=== PATIENT | female | born 1975 | race Caucasian/White ===

== ENCOUNTER 2017-02-19 12:05 | Emergency (ER) | payer MEDICAID, OTHER ==
[~2017-02-19] VITALS: Ht 149.9 cm; Wt 57.2 kg
[~2017-02-19 12:05] MED LIST: ACET-8386 PO
[2017-02-19 12:50] VITALS: BP 144/82
--- NOTE | 2017-02-19 13:00 | NUR ---
PT AMBULATES BACK TO THE LOBBY
--- NOTE | 2017-02-19 14:40 | NUR ---
C/O UNABLE TO SEE ON RT EYE SHUT X 2 DAYS WITH LITTLE DIZZINESS, UNABLE TO BEND HX; DENIES . DENIES N/V/D; SKIN IS PINK/WARM/DRY; AAOX4 WITH EVEN AND STEADY GAIT; LUNGS CLEAR BL; HR EVEN AND REGULAR; PT DENIES ANY FEVER, CP, SOB, OR COUGH AT THIS TIME; PATIENT STATES PAIN OF 5/10 AT THIS TIME; VSS; PATIENT POSITIONED FOR COMFORT; HOB ELEVATED; BEDRAILS UP X2; BED DOWN. ER MD MADE AWARE OF PT STATUS.
[2017-02-19 14:43] VITALS: BP 138/70
[2017-02-19] MEDS ORDERED: TETRACAINE HCL/PF 0.5% OPTH 4 ML BTL ONE (14:48)
[2017-02-19] MEDS: TETRACAINE HCL/PF 0.5% OPTH 4 ML BTL OP ONE (15:11)
--- NOTE | 2017-02-19 15:12 | NUR ---
pt seen and discharged by
== END 2017-02-19 15:12 | disposition home or self-care (01) ==
LOC: MED 12:05
DX: H10.31 Unspecified acute conjunctivitis, right eye (principal); Z79.899 Other long term (current) drug therapy
CPT/HCPCS: 99283

== ENCOUNTER 2020-10-24 17:20 | Emergency (ER) | payer OTHER ==
[~2020-10-24] VITALS: Ht 149.9 cm; Wt 68.0 kg
[2020-10-24 18:45] VITALS: BP 147/90
--- NOTE | 2020-10-24 18:45 | NUR ---
to tent ambulatory
--- NOTE | 2020-10-24 19:20 | NUR ---
SEEN AND EXAMINED BY PA
[2020-10-24] MEDS ORDERED: NAPR-54 PO (19:25)
[2020-10-24] MEDS ORDERED: ONDA-24 SL (19:25)
[2020-10-24] MEDS ORDERED: PROM118S5 PO (19:25)
--- NOTE | 2020-10-24 19:40 | NUR ---
SWAB FOR NOVEL SENT TO LAB
[2020-10-24 19:50] VITALS: BP 147/90
--- NOTE | 2020-10-24 19:50 | NUR ---
Patient discharged with v/s stable. Written and verbal after care instructions given and explained. Patient alert, oriented and verbalized understanding of instructions. Ambulatory with steady gait. All questions addressed prior to discharge. ID band removed. Patient advised to follow up with PMD. Rx of NAPROXEN, ZOFRAN PROMETHAZINE given. Patient educated on indication of medication including possible reaction and side effects. Opportunity to ask questions provided and answered.
== END 2020-10-24 19:50 | disposition home or self-care (01) ==
LOC: MED 17:20
DX: U07.1 COVID-19 (principal)
CPT/HCPCS: 99283; U0003

== ENCOUNTER 2020-11-05 17:09 | Emergency (ER) | payer OTHER ==
[~2020-11-05] VITALS: Ht 149.9 cm; Wt 64.4 kg
[~2020-11-05 17:09] MED LIST changes: +NAPR-54 PO; +ONDA-24 SL; +PROM118S5 PO
[2020-11-05 17:13] VITALS: BP 157/113
--- NOTE | 2020-11-05 17:17 | NUR ---
BIB SELF C/O COUGH, 7/10 CAUSEY X 3 WEEKS. COVID TESTED POSITIVE 10/24/20. PMH: DENIES
[2020-11-05] MEDS ORDERED: SUMA100T21 PO (18:52)
[2020-11-05 19:00] VITALS: BP 157/113
--- NOTE | 2020-11-05 19:00 | NUR ---
Patient discharged with v/s stable. Written and verbal after care instructions given and explained. Patient verbalized understanding. Ambulatory with steady gait. All questions addressed prior to discharge. Advised to follow up with PMD.
--- NOTE | 2020-11-05 19:00 | NUR ---
COVID PCR SWAB DONE.
== END 2020-11-05 19:00 | disposition home or self-care (01) ==
LOC: MED 17:09
DX: G43.909 Migraine, unspecified, not intractable, without status migrainosus (principal); Z20.822 Contact with and (suspected) exposure to COVID-19
CPT/HCPCS: 99283; U0003

== ENCOUNTER 2020-11-20 12:50 | Emergency (ER) | payer OTHER ==
[~2020-11-20] VITALS: Ht 149.9 cm; Wt 64.4 kg
[~2020-11-20 12:50] MED LIST changes: +SUMA100T21 PO
[2020-11-20 12:56] VITALS: BP 111/41
--- NOTE | 2020-11-20 13:00 | NUR ---
PATIENT AMBULATED TO BED 8, STEADY GAIT.
--- NOTE | 2020-11-20 13:03 | NUR ---
44 YO FEMALE BIBS WITH C/O L FACE SWELLING WITH 10/10 PAIN X 5 DAYS. DESCRIBES PAIN PRESSURE/CONSTANT. PER PATIENT, PAIN BEGAN IN GUMS. PATIENT STATES SHE TOOK 4 OTC ADVIL TABLETS TODAY AND HAS APPLIED ICE TO FACE, W/O RELIEF. DENIES NUMBNESS/TINGLING OR LOSS OF SENSATION TO FACE. DENIES PROBLEMS WITH VISION/HEARING. DENIES RECENT RESPIRATORY PROBLEMS. DENIES FEVER, CHILLS, N/V/D. A&OX4, VSS. PMH: DENIES NKDA
--- NOTE | 2020-11-20 13:12 | NUR ---
MD LINDA AT BEDSIDE EVALUATING PATIENT.
[2020-11-20] MEDS ORDERED: AMPICILLIN/SULBACTAM 3 GM in NACL 0.9% 100 ML IV ONE (13:15)
[2020-11-20] MEDS ORDERED: NACL 0.9% 1,000 ML IV ONE (13:15)
--- NOTE | 2020-11-20 13:30 | NUR ---
BLOOD SAMPLES COLLECTED AND WALKED TO LAB.
[2020-11-20] MEDS ORDERED: AMPICILLIN/SULBACTAM 3 GM VIAL ONE (13:39)
[2020-11-20 14:10] LABS: BASOPHILS % (AUTO) 0.3 % (0.0-2.0); EOSINOPHILS # (AUTO) 0.1 K/uL (0-0.4); EOSINOPHILS % (AUTO) 0.5 % (0.0-4.0); HEMATOCRIT 40.4 % (36-48); HEMOGLOBIN 13.3 g/dL (12.0-16.0); LYMPHOCYTES # (AUTO) 2.4 K/uL (2.5-16.5); LYMPHOCYTES % (AUTO) 19.1 % (20.5-51.1); MEAN CORPUSCULAR HEMOGLOBIN 30 pg (27-31); MEAN CORPUSCULAR HGB CONC 33 g/dL (33-37); MEAN CORPUSCULAR VOLUME 89.4 fL (80-94); MONOCYTES # (AUTO) 1.4 K/uL (0.8-1.0); MONOCYTES % (AUTO) 11.1 % (1.7-9.3); NEUTROPHILS # (AUTO) 8.6 K/uL (1.8-7.7); PLATELET COUNT (AUTO) 295 K/uL (140-450); RED BLOOD CELL COUNT(AUTO) 4.52 MIL/uL (4.20-5.40); RED CELL DISTRIBUTION WIDTH 18.5 % (11.6-13.7); WHITE BLOOD COUNT (AUTO) 12.5 K/uL (4.8-10.8)
[2020-11-20 14:39] LABS: ALBUMIN 3.3 g/dL (3.4-5.0); ANION GAP 18.7 (8-16); CARBON DIOXIDE 22.8 mmol/L (21-32); CREATININE 0.8 mg/dL (0.6-1.3); POTASSIUM 3.5 mmol/L (3.5-5.1); TOTAL BILIRUBIN 0.3 mg/dL (0.0-1.0)
[2020-11-20 14:57] VITALS: BP 161/86
--- NOTE | 2020-11-20 14:58 | NUR ---
PATIENT TAKEN TO CT VIA GURNEY.
--- NOTE | 2020-11-20 15:09 | NUR ---
PT RETURNED TO BED [address]
[2020-11-20] MEDS ORDERED: AMOX-1000 PO (16:02)
== END 2020-11-20 16:12 | disposition home or self-care (01) ==
LOC: MED 12:50
DX: K04.7 Periapical abscess without sinus (principal)
CPT/HCPCS: 36415; 70487; 80053; 85025; 86140; 87040; 96365; 99285; J0295; J7030; Q9967